=== PATIENT | female | born 1975 | race Caucasian/White ===

== ENCOUNTER 2017-05-28 01:30 | Inpatient (IN) | payer OTHER ==
[~2017-05-28] VITALS: Ht 157.5 cm; Wt 70.3 kg
[~2017-05-28 01:30] MED LIST: CENTRUM SILVER1 TAB PO; CLONAZEPAM0.5 M2 PO; CLONAZEPAM0.5 MG PO; COCONUT OIL1000 MG PO; FLAX OIL1000 M1 PO; GEODON20 M1 PO; GEODON20 MG PO; GEODON60 MG PO; LAMICTAL100 M2 PO; LINZESS145 MC1 PO; LIPITOR; MAGNESIUM500 M2 PO; MIRENA52 MG; OMEGA 3-6-9 11200 MG PO; PRENATAL TABLE1 EAC2 PO; SEROQUEL XR400 M1 PO; SEROQUEL300 MG PO; VITAMIN B122500 MC1 PO; VITAMIN C500 M7 PO; VITAMIN D34000 UNIT PO
[2017-05-28] MEDS ORDERED: ATORVASTATIN CA20 M1 PO (08:17)
--- NOTE | 2017-05-28 08:53 | Operative Report ---
Operative/Inv Procedure Report Surgery Date: 05/28/17 Name of Procedure: cystoscopy: bilateral stent insertion Pre-Operative Diagnosis: Menometrorrhagia Post-Operative Diagnosis: same Estimated Blood Loss: none Surgeon/Dielectric Embossing Machine Operator: MD Clinton Arnold-Urology Anesthesia: general endotracheal tube Drains: 16 fr langford Specimens: ucx Complications: none Operative/Procedure Note Note: The patient was taken to the operating room and placed on the OR table in supine position. Timeout was performed, with the patient awake, to confirm correct identify, planned procedures, anesthesia, antibiotics, and other pertinent alexx -operative information. After adequate anesthesia, and IV antibiotics, the patient was placed in lithotomy Yellow-fin stirrups. She was then draped and prepped in the usual surgical fashion, including a vaginal prep. A 22 [place] cystoscope sheath with a 30 angle lens was inserted into the bladder without significant difficulty. The bladder was thoroughly and systematically examined, and was noted to be free of tumor, free of stone, free of endometriosis. Both ureteral orifices were in their orthotopic positions with clear reflux bilaterally. Under direct visualization the left orifice was intubated with a 5 [place] whistle-tip catheter, which was advanced easily into the left kidney pelvis. The right ureteral orifice was intubated with a second 5 [place] ureteral whistle tip catheter, and advanced into the right renal pelvis without difficulty. For identification purposes the blue marked stent went into the left kidney, and the right ureteral stent was marked red. Urine culture was obtained and sent to pathology. The cystoscope was then removed leaving both stents in proper place. An 18 [place] Lanfgord catheter was inserted draining clear fluid and 10 mL of sterile water was then placed in the balloon. The ends of the ureteral stents, which protruded externally, were taped to the Langford catheter in order to secure their position. The individual ureteral stents were then connected to their individual drainage devices. The patient tolerated the procedure well. All sponge needle and instrument count were correct at the end of this procedure. The patient was then repositioned in supine position, and Venodynes were placed on the lower extremeties bilaterally. At this point, Dr. Bartlett was able to proceed with the patient's surgery. Findings: normal bladder Discharge Disposition: proceed with dr. bartlett CC: Jorge Clinton MD
--- NOTE | 2017-05-28 10:16 | Operative Report ---
Operative/Inv Procedure Report Surgery Date: 05/28/17 Name of Procedure: Total abdominal hysterectomy bilateral salpingo-oophorectomy removal of stents and removal of On Pre-Operative Diagnosis: Menorrhagia Next plan on Post-Operative Diagnosis: Same Estimated Blood Loss: 500 Surgeon/Newspaper Carriers Supervisor: Dada KUMAR,Kimberly Cage and Dr. Tristin Conrad Anesthesia: general endotracheal tube, block Operative/Procedure Note Note: Procedure note patient was taken the operating room placed supine position after adequate anesthesia patient placed in dorsolithotomy position Dr. Clinton placed stents patient was returned spine position the abdomen was prepped and draped so fashion left arm was prepped and draped sterile fashion the Had been marked with a marker on and incision was made at the base of the next plan on Patient tolerated this well several cons placed in usual fashion on the round ligament on the right was identified using 0 suture round ligament left identified using 0 suture bladder flap spelled sharply as well as bluntly sequentially cervical branches uterine artery on the right left were clamped and cut to level of the external os the specimen was removed using a Bovie at this point the cuff was oversewn running locking suture was indicated interrupted [id number] hates the abdomen irrigated copious amounts warm saline cuff was reapproximated I any bleeding areas were sutured or Bovie coagulated. I at this point the right ovary and tube were picked up clamped 2 with Smith ducts left ovary and tube were removed on and suture-ligated 0 pedicle was hemostatic the right ovary and tube were clamped 2 using Smith ducts removed all oversewn 3 the pedicle was hemostatic once was removed from the abdomen after Fernanda had been placed on the pedicle peritoneum was reapproximated 0 the fascia was reapproximated to continue sutures #1 the skin was reapproximated bryon at the end the case counts correct urine was clear on with blood-tinged the stents removed bilaterally intact at the end the case patient was awakened from anesthesia and transferred recovery room awake alert thank you Blunt dissection with snaps were performed in Was removed a Steri-Strip reapproximated the skin patient tolerated that well at this point on the patient's abdomen was prepped and draped so fashion through Pfannenstiel skin incision skin was cut carried down to rectus fascia using curved males. Peritoneal cavity was entered high into the abdomen
[2017-05-29 09:01] LABS: ABSOLUTE BASOPHIL COUNT 0 /CUMM (0.0-0.2); ABSOLUTE EOSINOPHIL COUNT 0 /CUMM (0.0-0.7); ABSOLUTE GRANULOCYTE CT 7.1 /CUMM (1.4-6.5); ABSOLUTE LYMPH COUNT 1.2 /CUMM (1.2-3.4); ABSOLUTE MONOCYTE COUNT 0.8 /CUMM (0.10-0.60); EOSINOPHIL % 0 % (0-5); MEAN CORPUSCULAR HGB CONC 34.5 G/DL (33.0-37.0); PLATELET COUNT 220 /CUMM (130-400)
[2017-05-29 09:09] LABS: BASOPHIL % 0.1 % (0.0-2.0); GRANULOCYTE % 77.4 % (42.2-75.2); MEAN CORPUSCULAR HGB 31.8 PG (27.0-31.0); MEAN CORPUSCULAR VOLUME 92.2 FL (81.0-99.0); MEAN PLATELET VOLUME 7.8 FL (7.4-10.4); RBC DISTRIBUTION WIDTH 12.5 % (11.5-14.5)
[2017-05-29 09:14] LABS: HEMATOCRIT 23.9 % (37-47); RED BLOOD CELL CT 2.59 /CUMM (4.20-5.40); WHITE BLOOD CELL COUNT 9.1 /CUMM (4.8-10.8)
--- NOTE | 2017-05-29 09:24 | PN- Post Delivery/GYN ---
Subjective Subjective: LIKES BREAKFAST Objective Last 24 Hrs of Vital Signs/I&O ASCPER PAPER CHART Physical Exam: PE THIN WF IN NAD ABD SOFT NT INCISION CDI EXT -EDEMA -HOMANS Assessment/Plan Assessment/Plan ASSESS S/P TAHBSO PLAN CONT POC CHECK CBC
[2017-05-29 14:19] LABS: ABSOLUTE BASOPHIL COUNT 0 /CUMM (0.0-0.2); ABSOLUTE EOSINOPHIL COUNT 0 /CUMM (0.0-0.7); ABSOLUTE GRANULOCYTE CT 7.5 /CUMM (1.4-6.5); ABSOLUTE LYMPH COUNT 1.9 /CUMM (1.2-3.4); ABSOLUTE MONOCYTE COUNT 0.7 /CUMM (0.10-0.60); BASOPHIL % 0.4 % (0.0-2.0); EOSINOPHIL % 0 % (0-5); HEMATOCRIT 23.4 % (37-47); MEAN CORPUSCULAR HGB 31.5 PG (27.0-31.0); MEAN CORPUSCULAR HGB CONC 33.9 G/DL (33.0-37.0); MEAN CORPUSCULAR VOLUME 92.8 FL (81.0-99.0); MEAN PLATELET VOLUME 7.2 FL (7.4-10.4); PLATELET COUNT 217 /CUMM (130-400); RBC DISTRIBUTION WIDTH 12.5 % (11.5-14.5); RED BLOOD CELL CT 2.53 /CUMM (4.20-5.40); WHITE BLOOD CELL COUNT 10.2 /CUMM (4.8-10.8)
[2017-05-30] MEDS ORDERED: IBUPROFEN800 M1 PO (10:12)
[2017-05-30] MEDS ORDERED: PERCOCET 5-3251 EACH PO (10:13)
== END 2017-05-30 11:00 | DRG 513 ==
LOC: SDA 01:30 → ENRESERV 12:46 → ENTRNSPT 13:14 → EDTRNSPTSTS 13:34 → EDTRNSPT 13:34 → GNO 14:02 → CMPTRNSPT 14:10 → GNO 05-30 11:00
PROVIDERS: Specialist
PROC: 0JPV0HZ Removal of Contraceptive Device from Upper Extremity Subcutaneous Tissue and Fascia, Open Approach (ICD-10-PCS; principal; 2017-05-28)
PROC: 0UT70ZZ Resection of Bilateral Fallopian Tubes, Open Approach (ICD-10-PCS; principal; 2017-05-28)
PROC: 0UT20ZZ Resection of Bilateral Ovaries, Open Approach (ICD-10-PCS; principal; 2017-05-28)
PROC: 0UT90ZZ Resection of Uterus, Open Approach (ICD-10-PCS; principal; 2017-05-28)
PROC: 0T788DZ Dilation of Bilateral Ureters with Intraluminal Device, Via Natural or Artificial Opening Endoscopic (ICD-10-PCS; 2017-05-28)
PROC: 3E0T3BZ Introduction of Anesthetic Agent into Peripheral Nerves and Plexi, Percutaneous Approach (ICD-10-PCS; 2017-05-28)
DX: N92.0 Excessive and frequent menstruation with regular cycle (principal); G47.33 Obstructive sleep apnea (adult) (pediatric); F31.9 Bipolar disorder, unspecified; Z45.89 Encounter for adjustment and management of other implanted devices
CPT/HCPCS: GNOS; 36415; 81025; 87086; C9399; J0131; J1100; J1170; J1200; J1580; J1650; J1885; J2405

== ENCOUNTER 2017-06-06 20:00 | Inpatient (IN) | payer OTHER ==
[~2017-06-06] VITALS: Ht 157.5 cm; Wt 70.3 kg
[~2017-06-06 20:00] MED LIST changes: +ATORVASTATIN CA20 M1 PO; +IBUPROFEN800 M1 PO; +PERCOCET 5-3251 EACH PO
--- NOTE | 2017-06-06 20:45 | ED GI/GU/ABDOMINAL COMPLAINT ---
History of Present Illness General Chief Complaint: General Adult Stated Complaint: SIB DR. FAJARDO FOR ?BOWEL OBSTRUCTION Source: patient, old records Exam Limitations: no limitations Vital Signs & Intake/Output Vital Signs & Intake/Output Vital Signs Date Time Temp Pulse Resp B/P B/P Pulse O2 O2 Flow FiO2 Mean Ox Delivery Rate 06/06 2221 99.4 06/06 2216 99.4 84 20 106/63 97 Room Air 06/06 2207 97.7 74 18 142/73 100 06/06 2015 100.5 102 20 117/80 98 Room Air Allergies Coded Allergies: erythromycin base (Severe, HIVES 02/26/17) penicillin V (Severe, HIVES 05/29/17) Reconcile Medications Ascorbic Acid (Vitamin C) 500 MG CAPSULE.ER 2 CAP PO DAILY SUPP (Reported) Atorvastatin Calcium 20 MG TABLET 1 TAB PO DAILY CHOLESTEROL (Reported) Cholecalciferol (Vitamin D3) (Vitamin D3) 4,000 UNIT CAPSULE 4 PO DAILY SUPP (Reported) Clonazepam 0.5 MG TABLET 1 TAB PO BIDP PRN MENTAL HEALTH (Reported) Coconut Oil 1,000 MG CAPSULE 1 PO DAILY SUPP (Reported) Cyanocobalamin (Vitamin B-12) (Vitamin B12) 2,500 MCG TABLET 1 PO DAILY SUPP (Reported) Fish Oil/Borage/Flax/Om3,6,9#1 ([place] 3-6-9 1,200 MG Softgel) 1,200 MG CAPSULE 2 CAP PO DAILY SUPP (Reported) Flaxseed Oil (Flax Oil) 1,000 MG CAPSULE 2 PO DAILY SUPP (Reported) Ibuprofen 800 MG TABLET 800 MG PO Q6P PRN PAIN Lamotrigine (Lamictal) 100 MG TABLET 1 TAB PO QHS MENTAL HEALTH (Reported) Linaclotide (Linzess) 145 MCG CAPSULE 1 CAP PO DAILY CONSTIPATION (Reported) Magnesium Oxide (Magnesium) 500 MG CAPSULE 2 CAP PO BID SUPP (Reported) Oxycodone HCl/Acetaminophen (Percocet 5-325 MG Tablet) 5 MG-325 MG TABLET 1 TAB PO Q4P PRN PAIN Vit No.130/Iron/FA ( Tablet) 27 MG IRON-800 MCG TABLET 1 TAB PO DAILY SUPP (Reported) Quetiapine Fumarate (Seroquel XR) 400 MG TAB.ER.24H 2 TAB PO QPM MENTAL HEALTH (Reported) Ziprasidone Hydrochloride (Geodon) 20 MG CAPSULE 1 CAP PO DAILY MENTAL HEALTH (Reported) Ziprasidone Hydrochloride (Geodon) 60 MG CAPSULE 2 CAP PO QHS MENTAL HEALTH ( Reported) Triage Note: PT FROM HOME C/O ABD PAIN POST HYSTERECTOMY 05/28/17. PT STATES SINCE SURGERY PT HAS "BARLEY HAD A BOWEL MOVEMENT" PT STATES SHE HAS IBS AND TOOK 2 LINZESS TODAY WITHOUT ANY BM. PT STATES SHE HAS GONE IN THE PAST FEW DAYS "BUT NOT REGULARY". PT NOTICED A FEVER TODAY OF 100.7, PT CALLED MD WHO STATED TO COME TO ER FOR POSSIBLE SBO. PT FEBRILE ON ARRIVAL 100.5, SHIVERING IN TRIAGE WITH LAYERS ON. PT HAS NOT SELF MEDICATED WITH ANYTHING AT HOME. PT TAKES 90MG IRON DAILY, PT TOOK 45MG IRON THIS MORNING. PT DENIES N/V. PT UNABLE TO EAT TODAY. PT AMBULATING WITH LIMP. AT Triage Nurses Notes Reviewed? yes ? N Is pt currently ? No Onset: Gradual Duration: getting worse Timing: recent history Quality/Severity: severe, stabbing, throbbing Severity Numbers: 7 Location: generalized abdomen Radiation: no radiation HPI: Patient is a 42-year-old female with past medical history of hyperlipidemia and bipolar disorder who is status post 9 days of a total hysterectomy performed by [employer] Dr. Garland for concerns of endometriosis who states that she has been in worsening generalized abdominal pain since the procedure and has had gradually worsening constipation and has not been able to pass gas or stool in the past 24 -48 hours. Patient after day 1 and took 1 dose of pain medication of narcotics however she has not taken any narcotics since however has tried [id number] ibuprofen with no relief of her abdominal pain. Patient can tolerate by mouth with no vomiting no nausea Patient has chills and fever prior to arrival Denies any vaginal bleeding or discharge dysuria hematuria Patient was evaluated yesterday by her [employer] Dr. Garland who advised to continue drinking fluids Patient does state that the surgical scar looks well bryon were removed yesterday Past History Travel History Traveled to [place] past 21 day No Medical History Any Pertinent Medical History? see below for history Neurological: NONE EENT: NONE Cardiovascular: hyperlipidemia Respiratory: NONE Gastrointestinal: NONE Hepatic: NONE Renal: NONE Musculoskeletal: NONE Psychiatric: bipolar disease Endocrine: NONE History of CDIFF: No Surgical History Surgical History: hysterectomy Psychosocial History What is your primary language Polish Tobacco Use: Never used ETOH Use: occasional use Illicit Drug Use: denies illicit drug use Family History Hx Contributory? No Review of Systems Review of Systems Constitutional: Reports: see HPI, chills, fever. EENTM: Reports: no symptoms. Respiratory: Reports: no symptoms. Cardiovascular: Reports: no symptoms. GI: Reports: see HPI, abdominal pain. Genitourinary: Reports: no symptoms. Musculoskeletal: Reports: no symptoms. Skin: Reports: no symptoms. Neurological/Psychological: Reports: no symptoms. Hematologic/Endocrine: Reports: no symptoms. Immunologic/Allergic: Reports: no symptoms. All Other Systems: Reviewed and Negative Physical Exam Physical Exam General Appearance: mild distress Head: atraumatic Eyes: Bilateral: normal appearance. Ears, Nose, Throat, Mouth: moist mucous membrane Neck: normal inspection Respiratory: no respiratory distress Cardiovascular: regular rate/rhythm Gastrointestinal: normal bowel sounds, nOTED INCISIONAL SCAR WELL-HEALING NO ACTIVE DISCHARGE gENERALIZED ABDOMINAL POINT TENDERNESS AND MILD DISTENTION Back: normal inspection Neurologic/Psych: no motor/sensory deficits, awake Skin: intact, normal color, warm/dry Core Measures ACS in differential dx? No Sepsis Present: No Sepsis Focused Exam Completed? No Progress Differential Diagnosis: AAA, AMI, appendicitis, biliary colic, bowel obstruction , colon cancer, cholecystitis, diverticulitis, endometritis, esophageal varices, gastritis, hepatitis, hernia, hemorrhoids, ischemic bowel, inflamm bowel dis, kidney stone, ovarian cyst, ovarian torsion, pancreatitis, PID/cervicitis, peptic ulcer, PUD/GERD, perforated viscous, SBO, threatened AB, UTI/pyelo Plan of Care: Orders Procedure Date/time Status Nothing by Mouth 06/07 B Active LACTIC ACID 06/06 2305 Active CULTURE,URINE 06/06 2302 Active URINALYSIS 06/06 230 Complete EKG 06/06 2301 Active Misc Message 06/06 2246 Active ED Holding Orders 06/06 2246 Active Admit to inpatient 06/06 2246 Active Vital Signs 06/06 2246 Active Code Status 06/06 2246 Active BLOOD CULTURE 06/06 2004 Active PARTIAL THROMBOPLASTIN TIME 06/06 2004 Complete PROTHROMBIN TIME 06/06 2004 Complete LACTIC ACID 06/06 2004 Complete COMPREHENSIVE METABOLIC PANEL 06/06 2004 Complete CBC WITHOUT DIFFERENTIAL 06/06 2004 Complete TYPE & SCREEN (NOT X-MATCH) 06/06 2004 Complete Current Medications Sig/Kamron Start time Last Medication Dose Stop Time Status Admin Sodium Chloride 1,000 ML BOLUS ONE 06/06 2314 AC (Normal Saline 0.9%) 06/07 0014 Laboratory Tests 06/06/172299: Urine Color YEL, Urine Clarity CLEAR, Urine pH 7.0, Ur Specific Wever 1.010, Urine Protein NEG, Urine Ketones NEG, Urine Nitrite NEG, Urine Bilirubin NEG, Urine Urobilinogen 0.2, Ur Leukocyte Esterase NEG, Ur Microscopic EXAM NOT REQUIRED, Urine Hemoglobin NEG, Urine Glucose NEG 06/06/172049: Anion Gap 13, Estimated GFR > 60, BUN/Creatinine Ratio 11.4, Glucose 86, Lactic Acid 0.9, Calcium 8.7, Total Bilirubin 0.8, AST 24, ALT 37, Alkaline Phosphatase 56, Total Protein 6.9, Albumin 4.0, Globulin 2.9, Albumin/Globulin Ratio 1.4, PT 12.0, INR 1.14, APTT 30, CBC w Diff NO MAN DIFF REQ, RBC 2.97 L, MCV 92.3, MCH 30.9, RDW 13.2, MPV 6.4 L, Gran % 67.2, Lymphocytes % 22.7, Monocytes % 7.4, Eosinophils % 2.3, Basophils % 0.4, Absolute Granulocytes 5.4, Absolute Lymphocytes 1.8, Absolute Monocytes 0.6, Absolute Eosinophils 0.2, Absolute Basophils 0, PUBS MCHC 33.4 Microbiology 06/06 2299 URINE ROUT: Urine Culture - RECD 06/06 2155 BLOOD: Blood Culture - RECD 06/06 2049 BLOOD: Blood Culture - RECD Patient initially had relief of pain with IV Tylenol. Fever resolved patient normotensive hemoglobin and hematocrit unremarkable and have been improved since last measured yesterday I discussed CT scan results with radiologist to then I discussed CT scan with OB /DOWNSTREAM BIOMAN[employer] TECHNICIAN Dr. Fajardo who is covering for Dr. Garland phone #[phone] in which he requested patient to be admitted and to have prophylactic antibiotic coverage of clindamycin and gentamicin have patient be administered probiotic IV fluids which patient may require interventional radiology guidance evaluation of the hematoma Discussed disposition plan with patient and family members who agree and have no questions. Diagnostic Imaging: Viewed by Me: CT Scan. Discussed w/RAD: CT Scan. Radiology Impression: acute abnormality Initial ED EKG: normal p-waves, normal QRS complex, 79 BPM,LOW VOLTAGE NSR Comments: PATIENT: GURMEET PETERS PRESENT AGE: 42 PATIENT ACCOUNT NO: [id number] : 76 LOCATION: [facility] ORDERING PHYSICIAN: Iain CORNELL SERVICE DATE: 06/06/17 EXAM TYPE: CAT - CT ABD & PELVIS W IV CONTRAST EXAMINATION: CT ABDOMEN AND PELVIS WITH CONTRAST CLINICAL INFORMATION: One week status post-post hysterectomy with fever, abdominal pain and obstipation. COMPARISON: Pelvic ultrasound dated 03/16/2014. TECHNIQUE: Multidetector volumetric imaging was performed of the abdomen and pelvis following IV administration of 90 mL of Optiray 320 intravenous contrast. Sagittal and coronal reformatted images were obtained on the technologist's workstation. DLP: 46.33 mGy-cm FINDINGS: LUNG BASES: The visualized lung bases are unremarkable. LIVER, GALLBLADDER, AND BILIARY TREE: The liver is normal in size, shape, and attenuation. No focal hepatic lesion or biliary ductal dilatation is present. The gallbladder is unremarkable with no evidence of radiopaque gallstones, gallbladder wall thickening, or obvious pericholecystic inflammatory changes. PANCREAS: Unremarkable. SPLEEN: Unremarkable. ADRENAL GLANDS: Unremarkable. KIDNEYS AND URETERS: The kidneys are normal in size, shape, and attenuation. No hydronephrosis, hydroureter, or calculi seen. No perinephric stranding. BLADDER: Unremarkable. GASTROINTESTINAL TRACT: The small and large bowel are unremarkable. No obstruction or free intraperitoneal air is seen. There is no focal bowel wall thickening. The appendix is unremarkable. ABDOMINAL WALL: There is a tiny fat-containing umbilical hernia. There is a recent Pfannenstiel type abdominopelvic incision with associated subcutaneous fat stranding and small gas locules noted. LYMPH NODES: Normal. VASCULAR: Unremarkable. PELVIC VISCERA: The uterus is surgically absent. No adnexal mass is seen. There is a moderately large amount of intermediate attenuation fluid within the pelvis, possibly blood products. Dimensions of this fluid collection are approximately 9.4 x 8.5 x 7.3 cm, a Hounsfield value of approximately 57 units (2:60 and 601:57). No central gas locules are noted. OSSEOUS STRUCTURES: Unremarkable. IMPRESSION: There is a history of recent hysterectomy. There is a moderately large, intermediate attenuation fluid collection within the pelvis, possibly a postoperative hematoma. Postoperative abscess is a further differential consideration. Please correlate clinically. No obstruction or free intraperitoneal air is seen. This critical result was discussed with Iain Lizama M.D. at 10:05 PM on 06/06/2017, and it was ascertained that the content and urgency of the report was understood at the time of direct communication. Departure Departure Disposition: STILL A PATIENT Condition: Stable Clinical Impression Primary Impression: Hematoma of pelvis Secondary Impressions: Fever, Post-operative pain Referrals: Thad KUMAR,Demarcus Medrano (PCP/Family) Departure Forms: Customer Survey General Discharge Information Admission Note Spoke With: James Fajardo MD Documentation of Exam: Documentation of any treatments & extenuating circumstances including Concerns Regarding Discharge (functional status, medication knowledge or non-compliance, living conditions, etc.) that warrant an admission rather than observation: [ Patient requires repeat labs IV pain medications IV antibiotics possible interventional radiology, IV fluids [employer] consultation]
[2017-06-06 21:08] LABS: ABSOLUTE BASOPHIL COUNT 0 /CUMM (0.0-0.2); ABSOLUTE EOSINOPHIL COUNT 0.2 /CUMM (0.0-0.7); ABSOLUTE GRANULOCYTE CT 5.4 /CUMM (1.4-6.5); ABSOLUTE LYMPH COUNT 1.8 /CUMM (1.2-3.4); ABSOLUTE MONOCYTE COUNT 0.6 /CUMM (0.10-0.60); BASOPHIL % 0.4 % (0.0-2.0); EOSINOPHIL % 2.3 % (0-5); GRANULOCYTE % 67.2 % (42.2-75.2); HEMATOCRIT 27.4 % (37-47); MEAN CORPUSCULAR HGB 30.9 PG (27.0-31.0); MEAN CORPUSCULAR HGB CONC 33.4 G/DL (33.0-37.0); MEAN CORPUSCULAR VOLUME 92.3 FL (81.0-99.0); MEAN PLATELET VOLUME 6.4 FL (7.4-10.4); PLATELET COUNT 486 /CUMM (130-400); RBC DISTRIBUTION WIDTH 13.2 % (11.5-14.5); RED BLOOD CELL CT 2.97 /CUMM (4.20-5.40); WHITE BLOOD CELL COUNT 8.1 /CUMM (4.8-10.8)
[2017-06-06 21:16] LABS: PTT 30 SEC (25-37)
--- NOTE | 2017-06-06 22:15 | CT SCAN REPORT ---
EXAMINATION: CT ABDOMEN AND PELVIS WITH CONTRAST CLINICAL INFORMATION: One week status post-post hysterectomy with fever, abdominal pain and obstipation. COMPARISON: Pelvic ultrasound dated 03/16/2014. TECHNIQUE: Multidetector volumetric imaging was performed of the abdomen and pelvis following IV administration of 90 mL of Optiray 320 intravenous contrast. Sagittal and coronal reformatted images were obtained on the technologist's workstation. DLP: 46.33 mGy-cm FINDINGS: LUNG BASES: The visualized lung bases are unremarkable. LIVER, GALLBLADDER, AND BILIARY TREE: The liver is normal in size, shape, and attenuation. No focal hepatic lesion or biliary ductal dilatation is present. The gallbladder is unremarkable with no evidence of radiopaque gallstones, gallbladder wall thickening, or obvious pericholecystic inflammatory changes. PANCREAS: Unremarkable. SPLEEN: Unremarkable. ADRENAL GLANDS: Unremarkable. KIDNEYS AND URETERS: The kidneys are normal in size, shape, and attenuation. No hydronephrosis, hydroureter, or calculi seen. No perinephric stranding. BLADDER: Unremarkable. GASTROINTESTINAL TRACT: The small and large bowel are unremarkable. No obstruction or free intraperitoneal air is seen. There is no focal bowel wall thickening. The appendix is unremarkable. ABDOMINAL WALL: There is a tiny fat-containing umbilical hernia. There is a recent Pfannenstiel type abdominopelvic incision with associated subcutaneous fat stranding and small gas locules noted. LYMPH NODES: Normal. VASCULAR: Unremarkable. PELVIC VISCERA: The uterus is surgically absent. No adnexal mass is seen. There is a moderately large amount of intermediate attenuation fluid within the pelvis, possibly blood products. Dimensions of this fluid collection are approximately 9.4 x 8.5 x 7.3 cm, a Hounsfield value of approximately 57 units (2:60 and 601:57). No central gas locules are noted. OSSEOUS STRUCTURES: Unremarkable. IMPRESSION: There is a history of recent hysterectomy. There is a moderately large, intermediate attenuation fluid collection within the pelvis, possibly a postoperative hematoma. Postoperative abscess is a further differential consideration. Please correlate clinically. No obstruction or free intraperitoneal air is seen. This critical result was discussed with Iain Lizama M.D. at 10:05 PM on 06/06/2017, and it was ascertained that the content and urgency of the report was understood at the time of direct communication.
--- NOTE | 2017-06-07 00:54 | Cons- OBGYN ---
General Information and HPI Consulting Request Date of Consult: 06/07/17 Requested By: Alda CORNELL Reason for Consult: Abdominal pain Fever Postop from hysterectomy R/o Ileus vs abcess Source of Information: patient Exam Limitations: no limitations History of Present Illness: Patient is a 42 year old female who is Pod #10 from [facility] for endometriosis who contacted service at 715 pm with complaint of decreased appetite, fever and obstipation. She was seen by Dr Garland for staple removal on the and her blood count improved to 25. States that ate a pancake in the am on the but only able to tolerate liquids after that. Was on iron for one week and last bowel movement was one day ago. Allergies/Medications Allergies: Coded Allergies: erythromycin base (Severe, HIVES 02/26/17) penicillin V (Severe, HIVES 05/29/17) Home Med List: Ascorbic Acid (Vitamin C) 500 MG CAPSULE.ER 2 CAP PO DAILY SUPP (Reported) Atorvastatin Calcium 20 MG TABLET 1 TAB PO DAILY CHOLESTEROL (Reported) Cholecalciferol (Vitamin D3) (Vitamin D3) 4,000 UNIT CAPSULE 4 PO DAILY SUPP (Reported) Clonazepam 0.5 MG TABLET 1 TAB PO BIDP PRN MENTAL HEALTH (Reported) Coconut Oil 1,000 MG CAPSULE 1 PO DAILY SUPP (Reported) Cyanocobalamin (Vitamin B-12) (Vitamin B12) 2,500 MCG TABLET 1 PO DAILY SUPP (Reported) Fish Oil/Borage/Flax/Om3,6,9#1 ([place] 3-6-9 1,200 MG Softgel) 1,200 MG CAPSULE 2 CAP PO DAILY SUPP (Reported) Flaxseed Oil (Flax Oil) 1,000 MG CAPSULE 2 PO DAILY SUPP (Reported) Ibuprofen 800 MG TABLET 800 MG PO Q6P PRN PAIN Lamotrigine (Lamictal) 100 MG TABLET 1 TAB PO QHS MENTAL HEALTH (Reported) Linaclotide (Linzess) 145 MCG CAPSULE 1 CAP PO DAILY CONSTIPATION (Reported) Magnesium Oxide (Magnesium) 500 MG CAPSULE 2 CAP PO BID SUPP (Reported) Oxycodone HCl/Acetaminophen (Percocet 5-325 MG Tablet) 5 MG-325 MG TABLET 1 TAB PO Q4P PRN PAIN Vit No.130/Iron/FA ( Tablet) 27 MG IRON-800 MCG TABLET 1 TAB PO DAILY SUPP (Reported) Quetiapine Fumarate (Seroquel XR) 400 MG TAB.ER.24H 2 TAB PO QPM MENTAL HEALTH (Reported) Ziprasidone Hydrochloride (Geodon) 20 MG CAPSULE 1 CAP PO DAILY MENTAL HEALTH (Reported) Ziprasidone Hydrochloride (Geodon) 60 MG CAPSULE 2 CAP PO QHS MENTAL HEALTH ( Reported) Current Medications: Current Medications Sig/[place] Start time Last Medication Dose Route Stop Time Status Admin Acetaminophen 650 MG Q4P PRN 06/07 0045 UNVr PO Acetaminophen 0 .STK-MED ONE 06/06 2119 DC IV Acetaminophen 1,000 MG ONCE ONE 06/06 2114 DC 06/06 N/A 1 UNIT IV 06/06 Ascorbic Acid 500 MG BID 06/07 1000 UNVr PO Atorvastatin Calcium 5 MG 1700 06/07 1700 UNVr PO Clindamycin 900 MG IQ8 06/07 0800 UNVr Dextrose/Water 50 ML IV Clindamycin 600 MG ONCE ONE 06/065 DC 06/06 Dextrose/Water 50 ML IV 06/06 2314 2330 Clonazepam 0.25 MG AT BEDTIME 06/07 2200 UNVr PO 06/14 215 Cyanocobalamin 1,000 MCG DAILY 06/07 1000 UNVr PO Folic Acid 1 MG DAILY 06/07 1000 UNVr PO Gentamicin Sulfate 300 MG EVERY 24 HRS 06/07 1000 UNVr IM Gentamicin Sulfate 100 MG ONE ONE 06/06 2244 CAN Dextrose/Water 100 ML IV 06/06 2314 Ibuprofen 400 MG Q6P PRN 06/07 0045 UNVr PO Lactobacillus 1 CAP BID 06/07 1000 UNVr Acidophilus PO Lamotrigine 100 MG AT BEDTIME 06/07 220 UNVr PO Morphine Sulfate 6 MG ONCE ONE 06/06 2114 DC IV 06/06 2115 Quetiapine Fumarate 400 MG AT BEDTIME 06/07 2199 UNVr PO Sodium Chloride 75 ML 75 MLS/HR 06/07 0030 UNir IV Sodium Chloride 1,000 ML BOLUS ONE 06/06 2314 DC 06/07 IV 06/07 0014 0010 Sodium Chloride 1,000 ML BOLUS ONE 06/06 2044 DC 06/06 IV 06/06 Ziprasidone 80 MG AT BEDTIME 06/07 2199 UNVr PO Past History Medical History Blood Transfusion Hx: No Neurological: NONE EENT: NONE Cardiovascular: hyperlipidemia Respiratory: NONE Gastrointestinal: NONE Hepatic: NONE Renal: NONE Musculoskeletal: NONE Psychiatric: bipolar disease Endocrine: NONE Blood Disorders: anemia Cancer(s): NONE LINEMAN A CLASS/Reproductive: Endometriosis Surgical History Pertinent Surgical History: hysterectomy Psychosocial History Where Do You Live? Home Who Do You Live With? child, Fiance Services at Home: None Primary Language: Venezuelan Smoking Status: Unknown If Ever Smoked ETOH Use: occasional use Illicit Drug Use: denies illicit drug use Living Will? unknown Power of Deliver Driver/HCP? unknown Functional Ability ADLs Independent: dressing, eating, toileting, bathing. Ambulation: independent IADLs Independent: shopping, housework, finances, food prep, telephone, transportation , medication admin. Employment History Employment: Employed Retired? no Review of Systems Review of Systems Constitutional: Reports: chills, fever, malaise. EENTM: Denies: no symptoms. Cardiovascular: Denies: no symptoms. Respiratory: Denies: no symptoms. GI: Reports: abdominal pain, bloating, constipation, distention. Genitourinary: Denies: no symptoms. Musculoskeletal: Denies: no symptoms. Skin: Denies: no symptoms. Neurological/Psychological: Denies: no symptoms. Hematologic/Endocrine: Denies: no symptoms. Immunologic/Allergic: Denies: no symptoms. All Other Systems: Reviewed and Negative Exam & Diagnostic Data Vital Signs and I&O Vital Signs Date Time Temp Pulse Resp B/P B/P Pulse O2 O2 Flow FiO2 Mean Ox Delivery Rate 06/07 0003 98.5 80 18 106/62 98 Room Air 06/06 2221 99.4 06/06 2216 99.4 84 20 106/63 97 Room Air 06/06 2207 97.7 74 18 142/73 100 06/06 2016 100.5 102 20 117/80 98 Room Air Intake & Output 06/07 0800 06/07 0000 06/06 1600 06/06 0800 06/06 0000 06/05 1600 Intake Total 1000 Output Total Balance 1000 Intake, IV 1000 Patient 70.307 kg Weight Weight Reported by Patient Measurement Method Physical Exam General Appearance: well developed/nourished, alert, awake, comfortable Head: atraumatic, normal appearance Eyes: Bilateral: normal appearance. Ears, Nose, Throat: normal pharynx Neck: normal inspection Respiratory: normal breath sounds, lungs clear Cardiovascular: regular rate/rhythm Breasts Breast appear nl, No breast masses Gastrointestinal: soft, abnormal bowel sounds, distention, tenderness, No rebound Back: normal inspection, normal range of motion Extremities: normal inspection, normal range of motion, no edema Neurologic/Psych: no motor/sensory deficits, awake, alert, oriented x 3, normal gait, normal mood/affect Cranial Nerves: normal hearing, normal speech, PERRL Skin: intact, normal color, warm/dry, Wound intact NO cellulitis from previous IV site Lymphatic: adenopathy Reproductive: Normal female genitalia Last 24 Hours of Labs: Laboratory Tests 06/06 06/06 2300 2050 Chemistry Sodium (137 - 145 mmol/L) 139 Potassium (3.5 - 5.1 mmol/L) 4.2 Chloride (98 - 107 mmol/L) 99 Carbon Dioxide (22 - 30 mmol/L) 28 Anion Gap (5 - 16) 13 BUN (7 - 17 mg/dL) 8 Creatinine (0.5 - 1.0 mg/dL) 0.7 Estimated GFR (>60 ml/min) > 60 BUN/Creatinine Ratio (7 - 25 %) 11.4 Glucose (65 - 99 mg/dL) 86 Lactic Acid (0.7 - 2.1 mmol/L) 0.9 Calcium (8.4 - 10.2 mg/dL) 8.7 Total Bilirubin (0.2 - 1.3 mg/dL) 0.8 AST (14 - 36 U/L) 24 ALT (9 - 52 U/L) 37 Alkaline Phosphatase (<127 U/L) 56 Total Protein (6.3 - 8.2 g/dL) 6.9 Albumin (3.5 - 5.0 g/dL) 4.0 Globulin (1.9 - 4.2 gm/dL) 2.9 Albumin/Globulin Ratio (1.1 - 2.2 %) 1.4 Coagulation PT (9.4 - 12.5 SEC) 12.0 INR (0.90 - 1.19) 1.14 APTT (25 - 37 SEC) 30 Hematology CBC w Diff NO MAN DIFF REQ WBC (4.8 - 10.8 /CUMM) 8.1 RBC (4.20 - 5.40 /CUMM) 2.97 L Hgb (12.0 - 16.0 G/DL) 9.2 L Hct (37 - 47 %) 27.4 L MCV (81.0 - 99.0 FL) 92.3 MCH (27.0 - 31.0 PG) 30.9 RDW (11.5 - 14.5 %) 13.2 Plt Count (130 - 400 /CUMM) 486 H MPV (7.4 - 10.4 FL) 6.4 L Gran % (42.2 - 75.2 %) 67.2 Lymphocytes % (20.5 - 51.1 %) 22.7 Monocytes % (1.7 - 9.3 %) 7.4 Eosinophils % (0 - 5 %) 2.3 Basophils % (0.0 - 2.0 %) 0.4 Absolute Granulocytes (1.4 - 6.5 /CUMM) 5.4 Absolute Lymphocytes (1.2 - 3.4 /CUMM) 1.8 Absolute Monocytes (0.10 - 0.60 /CUMM) 0.6 Absolute Eosinophils (0.0 - 0.7 /CUMM) 0.2 Absolute Basophils (0.0 - 0.2 /CUMM) 0 PUBS MCHC (33.0 - 37.0 G/DL) 33.4 Urines Urine Color (YEL,AMB,STR) YEL Urine Clarity (CLEAR) CLEAR Urine pH (5.0 - 8.0) 7.0 Ur Specific [place] (1.001 - 1.035) 1.010 Urine Protein (NEG,<30 MG/DL) NEG Urine Ketones (NEG) NEG Urine Nitrite (NEG) NEG Urine Bilirubin (NEG) NEG Urine Urobilinogen (0.1 - 1.0 EU/dl) 0.2 Ur Leukocyte Esterase (NEG) NEG Ur Microscopic EXAM NOT REQUIRED Urine Hemoglobin (NEG) NEG Urine Glucose (N MG/DL) NEG Imaging Results: 9.4 x 8.5 x 7.3 cm pelvic collection No hydronephrosis Air and stool in rectum No SBO Assessment/Plan Assessment/Plan Patient is a 42 year old female with bipolar disorder and hyperlipidemia with obstipation, fever and abdominal pain found with infected pelvic hematoma. Clinically stable at present. Admit to hospital for antibiotic treatment and drainage of pelvic abcess. 1) Start on Clindamycin 900 mg q8 and gentamicin 300 mg daily (24 hour dosing of 5 mg/kg) This for coverage of usual pelvic caleb. Start on probiotics to reduce antibiotic associated diarrhea and theresa. No evidence of sepsis at present. 2) Will discuss with IR in the am for drainage on Thursday the . She had normal coagulation profile. 3) Anemia. Possible likely that previous acute drop in hematocrit was this process in evolution. Regardless the hematocrit is stable. Platelets increase from acute phase reactant of either infection or anemia. Start on folic acid, vitamin c, vitamin b12 for anemia support. 4) VTE prophylaxis with Alps. Not for lovenox as will need IR drainage. 5) Psych meds ordered. Stable with mood at present 6) Social. Daughter 16 cared for by family and fiance. 7) GI. Allow clears. No evidence of SBO at present. Renal. Creatinine wnl and no obstruction 8) Treatment plan reviewed with patient. Once abcess drained and she is afebrile for 48 hours that plan for discharge. Face to face hospital ED time 50 minutes Problem List: 1. Hematoma of pelvis 2. Fever 3. Post-operative pain Other Findings/Comments: None identified Copies To: Dada KUMAR,Kimberly Cage Consult Acknowledgment - Thank you for your consult request. Attending Review Statement Attending Statement Attending Statement: examined this patient, reviewed images, Reviewed care with PA Attending Assessment/Plan: as outlined
[2017-06-07 03:26] VITALS: BP 114/62
--- NOTE | 2017-06-07 09:43 | PN- OBGYN ---
Surgical Brief Attending Note Brief Attending Note: Patient seen and evaluated. Tired from ED to bed transition but feels better. States fluids helped. Flatus noted. No bowel movement. Pain in abdomen less and denies nausea. Vitals. Tmax 100.7 See paper record T98.4 Lungs clear Abdomen soft. Decreased bowel sounds but present. No guarding nor rebound. Distention less and less abdominal tenderness than previous exam. Wound intact. Extremities. No edema. UA negative Meds. Clindamycin 900 mg q8, Gentamicin 300 mg q 24 A/P HD#1 for this female with infected pelvic hematoma stable hemodynamically and with improvement. ID. Continue on IV antibiotics until 24-48 hours afebrile. On probiotics to decrease AAD. Heme. Hct low yet stable. Follow up level tomorrow to assess wbc and platelets. On vitamins for nutritional support. Abcess/hematoma. Patient denies vaginal bleeding nor vaginal pressure and did not appear to be on the cuff. Will review with Dr Garland for IR drainage considerations. No need for acute drainage at present in my opinion. VTE risk reduction with alps and oob. GI. Tolerating clears. Maintain on same until with bowel movement. Psych. Medications tolerated and continue on same. Treatment plan reviewed with patient.
[2017-06-07 15:15] VITALS: BP 98/58
[2017-06-07 21:42] VITALS: BP 96/66
[2017-06-08 06:32] VITALS: BP 96/58
[2017-06-08 08:30] LABS: ABSOLUTE BASOPHIL COUNT 0 /CUMM (0.0-0.2); ABSOLUTE EOSINOPHIL COUNT 0 /CUMM (0.0-0.7); ABSOLUTE GRANULOCYTE CT 3.3 /CUMM (1.4-6.5); ABSOLUTE LYMPH COUNT 1.3 /CUMM (1.2-3.4); ABSOLUTE MONOCYTE COUNT 0.5 /CUMM (0.10-0.60); BASOPHIL % 0.9 % (0.0-2.0); EOSINOPHIL % 0.8 % (0-5); MEAN CORPUSCULAR HGB 31.1 PG (27.0-31.0); MEAN CORPUSCULAR HGB CONC 33.8 G/DL (33.0-37.0); MEAN CORPUSCULAR VOLUME 92.2 FL (81.0-99.0); MEAN PLATELET VOLUME 6.7 FL (7.4-10.4); PLATELET COUNT 322 /CUMM (130-400); RBC DISTRIBUTION WIDTH 12.8 % (11.5-14.5); RED BLOOD CELL CT 2.35 /CUMM (4.20-5.40); WHITE BLOOD CELL COUNT 5.1 /CUMM (4.8-10.8)
[2017-06-08 10:05] LABS: HEMATOCRIT 21.7 % (37-47)
--- NOTE | 2017-06-08 11:01 | PN- Post Delivery/GYN ---
Subjective Subjective: POSITIVE FLATUS NOT HUNGRY CAN I WALK Objective Last 24 Hrs of Vital Signs/I&O Vital Signs Date Time Temp Pulse Resp B/P B/P Pulse O2 O2 Flow FiO2 Mean Ox Delivery Rate 06/08 0632 98.2 74 20 96/58 97 06/07 2142 98.6 97 18 96/66 99 Room Air 06/07 1515 98.1 87 20 98/58 99 Room Air Intake & Output 06/08 1600 06/08 0800 06/08 0000 Intake Total 600 1325 Output Total Balance 600 1325 Intake, IV 600 525 Intake, Oral 0 800 Number 0 Bowel Movements Physical Exam: PE THIN PALE WF IN NAD ABD BS NT SOFT EXT -EDEMA-HOMANS Assessment/Plan Assessment/Plan ASSESS ANNEMIA RESOLING INFECTED HEMATOMA RESPONDING TO ABX PLAN OOB ADVANCE DIET CHECK CBC
[2017-06-08 15:14] VITALS: BP 102/68
[2017-06-08 16:10] LABS: ABSOLUTE BASOPHIL COUNT 0 /CUMM (0.0-0.2); ABSOLUTE EOSINOPHIL COUNT 0 /CUMM (0.0-0.7); ABSOLUTE GRANULOCYTE CT 4.4 /CUMM (1.4-6.5); ABSOLUTE LYMPH COUNT 1.1 /CUMM (1.2-3.4); ABSOLUTE MONOCYTE COUNT 0.4 /CUMM (0.10-0.60); BASOPHIL % 0.6 % (0.0-2.0); EOSINOPHIL % 0 % (0-5); GRANULOCYTE % 73.7 % (42.2-75.2); HEMATOCRIT 24.4 % (37-47); MEAN CORPUSCULAR HGB 31.2 PG (27.0-31.0); MEAN CORPUSCULAR HGB CONC 33.8 G/DL (33.0-37.0); MEAN CORPUSCULAR VOLUME 92.3 FL (81.0-99.0); MEAN PLATELET VOLUME 6.8 FL (7.4-10.4); PLATELET COUNT 381 /CUMM (130-400); RBC DISTRIBUTION WIDTH 12.9 % (11.5-14.5); RED BLOOD CELL CT 2.64 /CUMM (4.20-5.40)
[2017-06-08 23:42] VITALS: BP 100/53
[2017-06-09 07:12] VITALS: BP 88/60
== END 2017-06-09 11:16 | DRG 721 ==
LOC: ERH 20:00 → 2NB 22:47 → ERHI 22:47 → 2NB 22:47 → ENRESERV 06-07 01:48 → 2NB 06-07 02:45 → ENPENDDIS 06-09 09:35 → 2NB 06-09 11:16
PROVIDERS: Obstetrics & Gynecology; Physician Assistant; Specialist
DX: T81.4XXA Infection following a procedure, initial encounter (principal); N99.840 Postprocedural hematoma of a genitourinary system organ or structure following a genitourinary system procedure; D64.9 Anemia, unspecified; R50.9 Fever, unspecified; K59.00 Constipation, unspecified; F31.9 Bipolar disorder, unspecified; G89.18 Other acute postprocedural pain
CPT/HCPCS: 2NBP; ERO; 36415; 74177; 81003; 87040; 87086; 93005; 93010; 96374; 96375; J0131; J1580; J3490